=== PATIENT | female | born 1995 | race Two or more races ===

== ENCOUNTER 2025-03-22 15:13 | Observation (INO) | payer MEDICAID, SELFPAY ==
[2025-03-22 15:22] VITALS: BP 120/73; PULSE 83; RESP 20; TEMP 36.8
[2025-03-22 15:23] VITALS: BP 120/73; PULSE 83
[2025-03-22 15:24] VITALS: BMI 29.7
[2025-03-22 15:26] VITALS: BP 120/73; PULSE 83; RESP 18; RESP 98; TEMP 36.8
[2025-03-22 16:21] LABS: ROM Kit Lot # 57807112; ROM Swab Mixed By: LOPEC2; Rupture of Fetal Membranes Negative (Negative); Swb Mxed in Solvent 1 min? Yes
== END 2025-03-22 16:35 | disposition home or self-care (01) ==
PROVIDERS: Admitting Provider Obstetrics & Gynecology; Visit Provider Obstetrics & Gynecology
DX: O47.1 False labor at or after 37 completed weeks of gestation (principal); Z3A.39 39 weeks gestation of pregnancy
CPT/HCPCS: 59025; 59899; 84112

== ENCOUNTER 2025-03-22 18:50 | Inpatient (IN) | payer MEDICAID, SELFPAY ==
[2025-03-22] VITALS (16 sets, daily range): BP systolic 114–138; BP diastolic 68–88; PULSE 76–114; RESP 16–99; TEMP 36.7–36.8; O2SAT 97–99; BMI 29.5
[2025-03-22 20:17] LABS: Basophils % (Auto) 0 % (0-2.5); Eosinophils # (Auto) 0.1 Thou/mm3 (0.0-0.5); Eosinophils % (Auto) 1 % (0-10); Hematocrit 29.7 % (36.0-46.0); Hemoglobin 9.9 g/dL (12.0-16.0); Immature Granulocytes % (Auto) 0 % (0-0); Immature Granulocytes Auto 0.03 Thou/mm3 (0.00-0.00); Lymphocytes # (Auto) 1.5 Thou/mm3 (1.0-4.8); Lymphocytes % (Auto) 18 % (10-50); Mean Corpuscular HGB Conc 33.3 g/dl (31.0-37.0); Mean Corpuscular Hemoglobin 24.9 pg (25.0-35.0); Mean Corpuscular Volume 75 fL (80-100); Monocytes # (Auto) 0.5 Thou/mm3 (0.0-0.8); Monocytes % (Auto) 7 % (0-12); Neutrophils # (Auto) 6.1 Thou/mm3 (1.8-7.7); Neutrophils % (Auto) 74 % (37-80); Nucleated Red Blood Cell % 0 /100 WBC (0); Platelet Count 227 Thou/mm3 (140-440); Red Blood Count 3.98 Miln/mm3 (4.00-5.20); White Blood Count 8.3 Thou/mm3 (3.6-11.0)
[2025-03-22] MEDS: RINGERS LACTATED 1000 ML 1,000 ML 125 ML IV (20:30)
[2025-03-22 20:52] LABS: Syphilis Nonreactive (Nonreactive)
--- NOTE | 2025-03-22 22:08 | PD.LDHP ---
Documentation for date of: 03/22/25 OB Labor/Induct. HPI History of Present Illness Chief complaint: leaking fluid : 7 Para: 5 Term pregnancies: 5 pregnancies: 0 Living children: 5 History of Abortions: Spontaneous and Elective: 1 History of Vaginal deliveries: 5 History of sections: No History of : No Date of last menstrual period: 06/16/24 KRISTIN: 03/23/25 Gestational Age (weeks): 39 Gestational Age (days): 6 Gestational age based on last menstrual period: 40 History of present illness: Patient presents for loss of fluid, clear, that occurred at 1830 on 03/22/25. No regular/painful ctx. No vaginal bleeding. Normal movement. No fevers/chills. History of Present Dating criteria: LMP confirmed by 2nd trimester US Adequate Care: Yes Narrative: Hx of 5 term , 1 ETOP Proven to [id number] Had PPH with 2nd delivery, no blood transfusions This only conplicated by Rh negative. Received Rhogam 12/29/24. Labs Maternal Blood Type: O Neg Labs: Negative: RPR, Hepatitis B, Rubella Titre, HIV, Chlamydia, Gonorrhea and Group Beta Strep Review of Systems Review of Systems Narrative Review of Systems: Review of Systems Systems Reviewed: All systems reviewed, normal except as documented Constitutional Constitutional: Denies body ache(s), Denies chills, Denies fever(s) and Denies headache(s) ENT Ears, Nose, Mouth, and Throat: Denies headache(s) and Denies vertigo Cardiovascular Cardiovascular: Denies chest pain, Denies palpitations, Denies dyspnea and Denies syncope Respiratory Respiratory: Denies cough, Denies dyspnea Gastrointestinal Gastrointestinal: Denies nausea and Denies vomiting Neurologic Neurologic: Denies convulsions, Denies headache(s), Denies other visual disturbances, Denies syncope and Denies vertigo Past Medical History Family History OTHER FAMILY HX: Aunt with ovarian cancer Surgical History SURGICAL: Negative Section OTHER SURGICAL HX: denies Social History SOCIAL: No tobacco/ETOH/illicit drug use. Homemaker. Past Medical History Comments PMH COMMENT: Benign Meds Home Medications and Allergies Allergies Allergy/AdvReac Type Severity Reaction Status Date / Time No Known Allergies Allergy Verified 03/22/25 22:27 OB Exam Physical Exam Vital signs: Temp Pulse Resp BP Pulse Ox 98.1 F 99 16 127/76 98 03/22/25 19:30 03/22/25 22:00 03/22/25 19:30 03/22/25 22:00 03/22/25 19:41 Narrative: General: well developed, well nourished, no acute distress, conversant Cardiac: normal heart rate Lungs: breathing without distress Abdomen: soft, gravid, non-tender, no rebound or guarding Extremities: no pain with palpation of calves Detailed Labor and Delivery Exam Dilation (cm): 3 Effacement (%): 50 station: -2 Presentation: Vertex Membranes: ruptured (grossly) Amniotic fluid: clear Baseline heart rate: 135 monitor accelerations: 15x15 monitor decelerations: None intermediate frame tender variability: Moderate (11-25) Contraction frequency (min): q4-5min OB Results Labs 03/22/25 19:26 Labs: Short CBC 03/22/25 Range/Units 19:26 WBC 8.3 (3.6-11.0) Thou/mm3 Hgb 9.9 L (12.0-16.0) g/dL Hct 29.7 L (36.0-46.0) % Plt Count 227 (140-440) Thou/mm3 OB Assessment & Plan Assessment and Plan (1) Rupture of membranes with clear amniotic fluid: Status: Acute Assessment and plan: Kandy is a 29yo with SIUP at 39&6wk presenting with ROM, clear, at 1830 on 03/22/25 in early labor. Ctx q4-5min, SCE: 3-4/50/-2. Vitals wnl, benign exam. Reassuring assessment. PMhx/ complicated by: -Rh negative. Received Rhogam 12/29/24 -Grandmultiparity. Proven to 8lb 15oz -Hx of PPH with 2nd delivery PNC with Dr. Mancilla Plan: -Admit to L&D -Establish IV, routine labs -CEFM -Clear liquid diet -Supervisor Microwave/consent re: -GBS status: negative -Anticipate -Safe to proceed (2) Grand multipara in labor in third trimester: Status: Acute (3) Rh negative state in antepartum period: Status: Acute
[2025-03-23] VITALS (16 sets, daily range): BP systolic 105–136; BP diastolic 55–80; PULSE 50–72; RESP 13–20; TEMP 36.2–36.7; O2SAT 95–98
[2025-03-23] MEDS: METHYLERGONOVINE INJ 0.2 MG/ML VIAL IM (00:09)
[2025-03-23] MEDS: OXYTOCIN in NS 20 units 20 UNIT/1,000 ML BAG 125 UNIT IV (00:11)
[2025-03-23] MEDS: IBUPROFEN TAB 400 MG TABLET 800 MG PO ×3 (01:01→23:32)
--- NOTE | 2025-03-23 01:23 | PD.LDDELS ---
Data ([facility]) Data Hx Section: No : 7 Term: 5 : 0 Livin Abortions: Spontaneous & Theraputic: 1 Delivery Data ([place]) Labor Data Initiation of labor: Spontaneous Induction/Augmentation Agent: None ROM date: 03/22/25 ROM time: 18:30 Amniotic membrane rupture type: Spontaneous Amniotic fluid description: Clear Delivery Data Onset of labor date: 03/22/25 Onset of labor time: 18:30 Complete dilation date: 03/22/25 Complete dilation time: 23:55 delivery date: 03/22/25 delivery time: 23:58 Placenta delivery date: 03/23/25 Placenta delivery time: 00:04 Stage 1 total time: Labor - Stage 1 Duration 5 hours and 25 minutes Delivered by: Diana Delivery nurse: Renzo LOTT [place] nurse: Palmer Jarquin RN Pharmacy Operations Manager at delivery: No Support person(s) at delivery: FOB Other staff at delivery: Armin LOTT Delivery Method Delivery method: Normal Vaginal Delivery Presentation: Vertex Anesthesia Type Anesthesia Type: None Placenta Placenta delivery description: Spontaneous Cord blood sent to lab: Yes cord blood collection: Cord Blood Type Episiotomy Episiotomy description: None EBL Estimated blood loss (ml): 200 Umbilical Cord cord description: 3 Vessels Additional Procedures Kandy is a 29yo [id number] s/p uncomplicated at 39&6wk after presenting with SROM, delivering at 2358 on 03/22/2025. On presentation, SCE was 3-4/50/-2. She progressed without augmentation to C/C/0 at which point she began pushing. She did not desire an epidural. Patient desired to push in hands-knees position. With good maternal pushing efforts, 's head delivered OA and restituted NASEEM. Left anterior shoulder delivered easily followed by posterior shoulder and corpus. Infant had spontaneous cry and was vigorous. Apgars 8/9. Infant placed in supported sitting position on the blue drape where nose/mouth were suctioned and infant dried/stimulated. After approximately 1 minute, cord was clamped x2 and cut by FOB. taken to warmer. Patient moved to supine position. Cord blood collected for typing. With fundal massage and cord traction, placenta delivered spontaneously and intact with 3 vessel centrally inserted cord. Bimanual massage performed and IV pitocin given per protocol with fundus then firm at u-2cm and hemostasis noted. Inspection of perineum and vagina revealed no lacerations. Small trickle of blood, so sweep just within cervix/MEMO performed which retrieved a small amount of clot. 0.2mg IM methergine given with observed hemostasis after. All counts correct x2. Mom and infant were doing well when I left the room. Shirley Ortiz MD Complications Complications: none Data ([place]) [place] Data order: 1 's gender: Female Identification band number: [id number] weight (gms): 3910 g Weight (pounds): 8 lbs and 9.9 ozs length: 56.5 cm 1 minute: 8 5 minutes: 9
[2025-03-23 05:28] LABS: Basophils # (Auto) 0.1 Thou/mm3 (0.0-0.2); Basophils % (Auto) 0 % (0-2.5); Eosinophils % (Auto) 0 % (0-10); Hematocrit 36.2 % (36.0-46.0); Hemoglobin 11.6 g/dL (12.0-16.0); Immature Granulocytes % (Auto) 0 % (0-0); Immature Granulocytes Auto 0.06 Thou/mm3 (0.00-0.00); Lymphocytes # (Auto) 1.2 Thou/mm3 (1.0-4.8); Lymphocytes % (Auto) 8 % (10-50); Mean Corpuscular Hemoglobin 24.9 pg (25.0-35.0); Mean Corpuscular Volume 78 fL (80-100); Monocytes % (Auto) 6 % (0-12); Neutrophils # (Auto) 13.5 Thou/mm3 (1.8-7.7); Neutrophils % (Auto) 86 % (37-80); Nucleated Red Blood Cell % 0 /100 WBC (0); Platelet Count 242 Thou/mm3 (140-440); RDW Standard Deviation 41.7 fL (36.4-46.3); Red Blood Count 4.65 Miln/mm3 (4.00-5.20); White Blood Count 15.8 Thou/mm3 (3.6-11.0)
[2025-03-23] MEDS: HYDROcodone/APAP 5/325 TABLET 1 TAB PO ×2 (06:18→13:24)
[2025-03-23] MEDS: PRENATAL VITAMIN/FE FUM/FA TABLET 1 TAB PO (08:04)
--- NOTE | 2025-03-23 11:17 | ESDS_ITS ---
DS: Providers Provider Date of admission: 03/22/25 20:20 Primary care physician: Physician No Primary/Family Admitting Provider: Shirley Ortiz MD Attending Provider on Admission: Shirley Ortiz MD Consults: 03/23/25 00:13 Referral Routine Comment: Attending Provider on DC: Shirley Ortiz MD Discharging Provider: Shirley Ortiz MD DS: Diagnosis Discharge Diagnosis (1) Vaginal delivery: Status: Acute (2) Grand multipara in labor in third trimester: Status: Acute (3) Rupture of membranes with clear amniotic fluid: Status: Acute Problem List Completed Was Problem List Reviewed/Reconciled?: Yes Summary/Hosp Course Brief History: Patient presents for loss of fluid, clear, that occurred at 1830 on 03/22/25. No regular/painful ctx. No vaginal bleeding. Normal movement. No fevers/chills. Kandy is a 29yo [id number] s/p uncomplicated at 39&6wk after presenting in active labor, delivering at 2358 on 03/22. She has had an uncomplicated course, meeting all milestones and feels ready for discharge home. She is ambulating without lightheadedness, tolerating regular diet no n/v, spontaneously voiding without issue. She has no chest pain or shortness of breath. No fevers or chills. Minimal, appropriate discomfort. Vitals normal, benign exam. Hemodynamically stable with no evidence of infection. PP Hgb 11.6. Peripartum Data Delivery Method: Normal Vaginal Delivery Episiotomy Description: None Status at Discharge Functional status at discharge: independent ambulation Overall status at discharge: patient is back to baseline Time Spent with Patient Time attestation: Total time spent providing and/or coordinating discharge services: Exam Vital Signs Temp Pulse Resp BP Pulse Ox O2 Del Method 97.3 F 60 20 118/74 97 Room Air 03/23/25 08:00 03/23/25 08:00 03/23/25 08:00 03/23/25 08:00 03/23/25 08:00 03/23/25 08:00 Narrative Exam General: well developed, well nourished, no acute distress, conversant Cardiac: normal heart rate Lungs: breathing without distress Abdomen: soft, post-gravid, non-tender, no rebound or guarding, Fundus firm at u-3cm. Extremities: no pain with palpation of calves, trace edema of BLE Discharge Plan Plan Patient Disposition: HOME (Self Care) Patient condition on transfer: Stable Prescriptions/Referrals Prescriptions/Med Rec: New ibuprofen 800 mg tablet 800 mg PO Q8H PRN (Reason: See Comments) 10 Days Qty: 20 0RF docusate sodium [Colace] 100 mg capsule 100 mg PO BID Qty: 20 0RF Continued Vits W-Ca,Fe,Fa(<1MG) ( Vitamin) 1 TAB tablet 1 tab PO DAILY 30 Days Qty: 0 0RF Discontinued diphenhydramine HCl [Benadryl Allergy] 25 mg tablet 50 mg PO TID PRN (Reason: allergic reaction) Qty: 20 0RF famotidine [Pepcid] 40 mg tablet 40 mg PO QDAY Qty: 7 0RF ondansetron 4 mg tablet,disintegrating 4 mg PO Q6H PRN (Reason: nausea and vomiting) Qty: 10 0RF Referrals: No Primary/Family,Physician [Primary Care Provider] - Patient/Caregiver Discharge Instructions Discharge Activity: activity as tolerated and other Other Discharge Activity Instructions:: vaginal rest and no heavy lifting more than 10 pounds for 6 weeks Other Discharge Diet Instructions: regular diet Education Materials: After a Vaginal Print Language: [place] Citizen Activity Restrictions/Additional Instructions: follow up with Dr. Mancilla in 2-4 weeks, call his office to schedule post- appointment Stand Alone Forms: [employer] Award Info., Patient Portal Info Letter Discharge Order Discharge Orders: Discharge (Routine); Ordered 03/23/25 Ordered By: Shirley Ortiz Planned Discharge Date 03/23/25
== END 2025-03-24 00:55 | disposition home or self-care (01) | DRG 560 ==
LOC: S4SX 03-23 00:16 → S4NX 03-23 02:35
PROVIDERS: Admitting Provider Obstetrics & Gynecology; Visit Provider Obstetrics & Gynecology
DX: O42.02 Full-term premature rupture of membranes, onset of labor within 24 hours of rupture (principal); O26.893 Other specified pregnancy related conditions, third trimester; Z3A.39 39 weeks gestation of pregnancy; Z67.41 Type O blood, Rh negative; Z37.0 Single live birth
CPT/HCPCS: 36415; 59409; 59899; 85025; 85461; 86780; 86850; 86900; 86901; J2210; J2590; J2790; J7120; A9270